=== PATIENT | male | born 2000 | race Hispanic/Latino ===

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

== ENCOUNTER 2024-11-11 06:56 | Emergency (ER) | payer OTHER, SELFPAY ==
[2024-11-11] MEDS ORDERED: Dexamethasone 10 MG/ML VIAL ONE (07:51)
[2024-11-11] MEDS ORDERED: Ketorolac Tromethamine 30 MG (1 mL) VIAL ONE (07:51)
== END 2024-11-11 08:41 | disposition home or self-care (01) ==
LOC: ERS 06:56
DX: M54.41 Lumbago with sciatica, right side (principal)
CPT/HCPCS: 72100; 96374; 96375; J1100; J1885; J2270